=== PATIENT | male | born 1940 | race Two or more races ===

== ENCOUNTER 2018-02-22 08:20 | Day surgery (SDC) | payer MEDICARE, BC ==
[~2018-02-22 08:20] MED LIST: DEXAMETHASONE SOD PHOSPHATE 10 MG/ML 1 ML VIAL IV ONE; HEPARIN SODIUM,PORCINE 5,000 UNIT/ML 1 ML VIAL SQ ONE; LACTATED RINGERS 1,000 ML IV SCH; LIDOCAINE 1% 20 ML VIAL (10MG/ML) FOR IV START INTRADERMA PRN; MIDAZOLAM (PF) 2 MG/2 ML VIAL IV PRN; ONDANSETRON 4 MG/2 ML VIAL IVP ONE; ceFAZolin IN SWFI 2 GM/20 ML SYRINGE IVP ONE; fentaNYL (PF) 50 MCG/ML 2 ML AMP IV PRN
[2018-02-22] MEDS ORDERED: LACTATED RINGERS 1,000 ML IV ONE (09:06)
[2018-02-22] MEDS ORDERED: fentaNYL (PF) 50 MCG/ML 2 ML AMP IV ONE (09:19)
[2018-02-22] MEDS ORDERED: MIDAZOLAM 2 MG/2 ML VIAL IV ONE (09:19)
--- NOTE | 2018-02-22 09:42 | P.GSHP ---
History of Present Illness H&P Date: 02/22/18 Chief Complaint: Right angle hernia, umbilical hernia This is a 77-year-old male presents today for laparoscopic robotic-assisted repair of right inguinal hernia and umbilical hernia. Patient has developed a tender mass is right groin. He seen Bar found have a reducible umbilical hernia. Past Medical History Past Medical History: Hyperlipidemia, Hypertension History of Any Multi-Drug Resistant Organisms: None Reported Additional Past Surgical History / Comment(s): vasectomy Additional Past Anesthesia/Blood Transfusion Reaction / Comment(s): NEVER HAD GENERAL ANESTHESIA. Past Psychological History: No Psychological Hx Reported Smoking Status: Never smoker Past Alcohol Use History: None Reported Past Drug Use History: None Reported - Past Family History Father Family Medical History: Deep Vein Thrombosis (DVT) Medications and Allergies Home Medications Medication Instructions Recorded Confirmed Type Aspirin [Adult Low Dose Aspirin EC] 81 mg PO DAILY 02/21/18 02/21/18 History Cholecalciferol (Vitamin D3) 2,000 unit PO DAILY 02/21/18 02/21/18 History [Vitamin D3] Lisinopril 30 mg PO HS 02/21/18 02/22/18 History Multivitamins, Thera [Multivitamin 1 tab PO DAILY 02/21/18 02/21/18 History (formulary)] [place]-3 Fatty Acids/Fish Oil [Fish 1 cap PO DAILY 02/21/18 02/21/18 History Oil 1,000 mg Softgel] Simvastatin [Zocor] 20 mg PO HS 02/21/18 02/22/18 History amLODIPine [Norvasc] 5 mg PO HS 02/21/18 02/22/18 History Allergies Allergy/AdvReac Type Severity Reaction Status Date / Time No Known Allergies Allergy Verified 02/22/18 08:43 Surgical - Exam Vital Signs Temp Pulse Resp BP Pulse Ox 98.1 F 85 16 154/72 98 02/22/18 08:59 02/22/18 08:59 02/22/18 08:59 02/22/18 08:59 02/22/18 08:59 - General well developed, no distress - Eyes PERRL - ENT normal pinna - Neck no masses - Respiratory normal expansion - Cardiovascular Rhythm: regular - Abdomen Abdomen: soft, non tender Hernia: inguinal (Right), umbilical Assessment and Plan Assessment: Right inguinal hernia and umbilical hernia. We'll perform laparoscopic robotic- assisted repair.
--- NOTE | 2018-02-22 10:10 | P.ONQ ---
Anesthesiology Proc Note - PNB - Peripheral Nerve Block Performed Right Transversus Abdominis Single Time Out Performed: Yes Procedure Start Time: 09:19 Indication: Acute Post-Operative Pain Sedation Type: Sedate with meaningful contact maintained Preparation: Sterile Prep Position: Supine Catheter: None Needle Types: Other (see comment) (Pajunk) Needle Size: 100mm (4") Needle Gauge: 21 Technique: Ultrasound Injectate: Other (see comment) (Rop 0.25% + lidocaine0.5% 30cc) Adjunct: Epinephrine (see comment for dilution ratio) (1:200,000) Blood Aspirated: No Pain Paresthesia on Injection Noted: No Resistance on Injection: Normal Events: Uneventful and Well Tolerated
[2018-02-22] MEDS ORDERED: GLYCOPYRROLATE 0.2 MG/ML 2 ML VIAL ONE (10:15)
[2018-02-22] MEDS ORDERED: ROCURONIUM BROMIDE 10 MG/ML 10 ML VIAL IV ONE (10:15)
[2018-02-22] MEDS ORDERED: MIDAZOLAM 2 MG/2 ML VIAL ONE (10:15)
[2018-02-22] MEDS ORDERED: ROPIVACAINE 5 MG/ML 30 ML VIAL ONE (10:15)
[2018-02-22] MEDS ORDERED: fentaNYL (PF) 50 MCG/ML 2 ML AMP ONE (10:15)
[2018-02-22] MEDS ORDERED: NEOSTIGMINE 1 MG/ML 10 ML VIAL ONE (10:15)
[2018-02-22] MEDS ORDERED: PHENYLEPHRINE-0.9% NACL SYG 1 MG/10 ML SYRINGE ONE (10:15)
[2018-02-22] MEDS ORDERED: PROPOFOL 10 MG/ML 20 ML VIAL IV ONE (10:15)
[2018-02-22] MEDS ORDERED: BUPIVACAIN-EPI 0.25%-1:200,000 30 ML VIAL SQ ONE (10:38)
[2018-02-22 11:36] VITALS: TEMP 97
--- NOTE | 2018-02-22 12:16 | P.OP ---
Date of Procedure: 02/22/18 Preoperative Diagnosis: Incarcerated right we'll hernia, umbilical hernia Postoperative Diagnosis: Incarcerated right inguinal hernia Incarcerated Umbilical hernia Procedure(s) Performed: Laparoscopic robotic-assisted repair of right inguinal hernia and umbilical hernia Anesthesia: FARAZ Surgeon: Bal Lemus Pathology: other (Incarcerated umbilical fat) Condition: stable Description of Procedure: The patient's placed on the operating table in the supine position. The patient received general anesthesia. The patient's abdomen was prepped and draped in usual sterile fashion. The skin was anesthetized 1% local Xylocaine at the incision sites. Using an 11 blade a skin incision was made at the umbilicus. The umbilicus contain incarcerated omentum. Using blunt and sharp dissection and electrocautery the incarcerated fat was dissected free into the pathology. The fascia was grasped with a [place] and then the peritoneal cavity was entered with the Veress needle. Position of the Veress needle was confirmed with a positive drop test. After adequate insufflation a 8 mm trocar was placed into the peritoneal cavity. The Laparoscope was placed the peritoneal cavity. And a robotic 8 mm trocar was placed in the right lateral position and then another 8 mm robotic trochars placed in the left lateral position. T. The patient was placed in reverse Trendelenburg and then the patient was docked to the robot. Patient incarcerated right inguinal hernia. Incarcerated small bowel was reduced into the peritoneal cavity. Next the peritoneum over top of the hernia was incised and then using blunt and sharp dissection and electrocautery the hernia sac was dissected free from the floor of the inguinal canal. The hernia sac was completely reduced into the peritoneal cavity. And then using the Pro fur matcher mesh the hernia was repaired. The peritoneum was then sutured with 20V lock suture. The patient was then undocked the robot. The needle was withdrawn from the peritoneal cavity. The umbilical hernia site was closed with 0 Ethibond suture. The skin was closed interrupted 3-0 Monocryl suture. Dermabond dressing was applied. Patient was sent to recovery in stable condition.
[2018-02-22 12:17] VITALS: RESP 18
[2018-02-22 12:46] VITALS: PULSE 62
[2018-02-22 13:13] VITALS: BP 142/73
== END 2018-02-22 14:26 | disposition home or self-care (01) ==
LOC: OR 08:20
PROVIDERS: ATTEND Surgery
DX: K40.30 Unilateral inguinal hernia, with obstruction, without gangrene, not specified as recurrent (principal); K42.0 Umbilical hernia with obstruction, without gangrene; E78.5 Hyperlipidemia, unspecified; I10 Essential (primary) hypertension; Z79.82 Long term (current) use of aspirin; Z79.899 Other long term (current) drug therapy
CPT/HCPCS: 49650; 49653; 64486; 88302; C1781; J2250; J1644; J1100; J2710; J2405; J3010; J2795; J2370; J2704; J0690; 64488